=== PATIENT | female | born 1935 | race Caucasian/White ===

== ENCOUNTER → 2017-02-27 | Day surgery (SDC) | payer MEDICARE, BC ==
[~2017-02-27] MED LIST: Glycopyrrolate 0.2 MG/ML SDV IVPUSH ONE; Lactated Ringers 1,000 ML IV SCH; Propofol 200 MG/20 ML SDV IV ONE
[2017-02-27 12:02] VITALS: BP 140/77
--- NOTE | 2017-02-28 09:21 | OR ---
DATE OF OPERATION: 02/27/2017 PREOPERATIVE DIAGNOSIS: DYSPHAGIA. 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 SURGEON: Donn Keith MD PROCEDURE: UPPER GASTROINTESTINAL ENDOSCOPY AND BIOPSY POLYPS, BODY OF THE STOMACH. ANESTHESIA: IV sedation by BAG [employer]DER. DESCRIPTION OF PROCEDURE: After patient's oropharyngeal mucosa was anesthetized, the patient was made to swallow the gastroscope down. There were food particles present within the body of the stomach which were just sitting there. There was no evidence of any stricture. The food particles were washed down into the stomach. There was no evidence of any hiatal hernia, but there was definitely gastroesophageal reflux present. There were polyps within the body of the stomach. One of them was removed with help of biopsy forceps. Multiple photographs were taken. Antrum, pyloric channel, first and second part of duodenum were examined. They were free of any ulcer disease, any tumor, mass, any other polypoid lesion. Other than polyps in the stomach and food material present within the esophagus, no other pathology was seen. This patient should have a motility studies done on her esophagus to see why the food just sits within her body of the stomach. WAYNE/MARIAN /[id number]
== END ==
LOC: CC.SDS 09:29
PROVIDERS: ATTEND Surgery
DX: K31.7 Polyp of stomach and duodenum (principal); K21.9 Gastro-esophageal reflux disease without esophagitis; Z88.0 Allergy status to penicillin; Z88.1 Allergy status to other antibiotic agents; Z88.2 Allergy status to sulfonamides; Z88.8 Allergy status to other drugs, medicaments and biological substances; Z79.899 Other long term (current) drug therapy
CPT/HCPCS: 43239; 88305; J2704; J7120; 00740

== ENCOUNTER 2017-03-07 09:44 | Observation (INO) | payer MEDICARE, BC ==
[~2017-03-07 09:44] MED LIST changes: -Glycopyrrolate 0.2 MG/ML SDV IVPUSH ONE; -Lactated Ringers 1,000 ML IV SCH; +Pantoprazole 40 MG Vial IVPUSH SCH; -Propofol 200 MG/20 ML SDV IV ONE
[2017-03-07] MEDS ORDERED: Enoxaparin 30 MG/0.3 ML Syringe SUBCUT SCH (10:15)
[2017-03-07] MEDS ORDERED: Sodium Chloride 0.9% 1,000 ML IV SCH (10:15)
[2017-03-07] MEDS ORDERED: Iopamidol 612 MG/ML 100 ML Bottle IVPUSH ONE (10:25)
[2017-03-07 10:40] LABS: O2 DELIVERY DEVICE ROOM AIR
[2017-03-07 10:42] LABS: O2 SATURATION ARTERIAL 94 % (95-98); PCO2 ARTERIAL 36 mm/Hg0 (35-45); PO2 ARTERIAL 67 mm/Hg (80-100)
[2017-03-07] MEDS ORDERED: Iopamidol 755 Mg/ML 100 ML Bottle IVPUSH ONE (11:06)
[2017-03-07 14:08] VITALS: BP 126/68
--- NOTE | 2017-03-07 14:25 | DISCH ---
ADMISSION DIAGNOSES: 1. New-onset shortness of breath. 2. Dysphagia. DISCHARGE DIAGNOSIS: 1. MALIGNANT RIGHT PLEURAL EFFUSION. 2. MEDIASTINAL ADENOPATHY WITH SUPRACLAVICULAR AND LOWER CERVICAL NECROTIC NODES, LIKELY RESULTING IN HOARSENESS. HISTORY: The patient is an 82-year-old who I had just met this morning. She has been having apparently ongoing issues with swallowing. She has had both EGD by Dr. Donn Keith and a nasopharyngoscopy by Dr. Lane Ernst, and now on top of her hoarseness and swallowing difficulty, she was complaining of shortness of breath and a slight amount of cough. When I evaluated her in my office, it was obvious she had some lower right cervical anterior adenopathy and supraclavicular adenopathy. We elected to admit her to the hospital for shortness of breath and routine cares including CT scan of the neck and chest. HOSPITAL COURSE: CT scan shows necrotic nodes in the right anterior cervical region and supraclavicular area. She has mediastinal adenopathy in her chest with likely malignant effusion of her right lung. She has a pericardial effusion as well. I was able to get a hold of Dr. Nuñez, on-call hospitalist, at [facility], to see if they would agree to accept her on transfer for definitive cares versus having a thoracentesis here in [place]. They graciously accepted this patient in transfer. She is going to go [facility] ground ambulance for cardiac monitoring, O2, and low-rate IV fluids. The patient understands the benefits and risks of transfer and agrees. Dr. Nuñez accepted this patient around 12:50 p.m. on 03/07/2017, along with her appropriate labs and records from her admission, we are sending copies of her EGD and nasopharyngoscopy done in the last month, I believe. COMPLICATIONS: Complications during her stay were none. CONSULTATIONS: None. DISPOSITION: [facility] ground ambulance, transfer to [facility], care of Dr. Nuñez. MIGUEL/MARIAN /[id number]
== END 2017-03-07 13:40 ==
LOC: UNDOADMOB 09:44 → CC.MS 09:44
PROVIDERS: ADMIT Family Medicine; ATTEND Family Medicine
DX: J91.0 Malignant pleural effusion (principal); R59.0 Localized enlarged lymph nodes; F41.9 Anxiety disorder, unspecified; K22.4 Dyskinesia of esophagus; G56.00 Carpal tunnel syndrome, unspecified upper limb; K21.9 Gastro-esophageal reflux disease without esophagitis; Z88.0 Allergy status to penicillin; Z88.1 Allergy status to other antibiotic agents; Z88.2 Allergy status to sulfonamides; Z88.8 Allergy status to other drugs, medicaments and biological substances; Z79.899 Other long term (current) drug therapy
CPT/HCPCS: 36415; 36600; 70491; 71275; 80053; 81001; 82803; 83880; 84484; 85025; 85379; 87086; 87088; 87186; 93005; 93010; 96361; 96374; 99236; C9113; G0378; J7030; Q9967